=== PATIENT | female | born 1965 | race Two or more races ===

== ENCOUNTER 2022-07-23 10:53 | Emergency (ER) | payer OTHER ==
[~2022-07-23] VITALS: Ht 165.1 cm; Wt 59.0 kg
[2022-07-23 11:01] VITALS: BP 109/79
[2022-07-23] MEDS ORDERED: ACETAMINOPHEN 325MG TABLET PO ONE (12:00)
[2022-07-23] MEDS ORDERED: TOPUD MT (13:10)
== END 2022-07-23 13:42 | disposition home or self-care (01) ==
LOC: ER 10:53
DX: S62.394A Other fracture of fourth metacarpal bone, right hand, initial encounter for closed fracture (principal); S93.491A Sprain of other ligament of right ankle, initial encounter; X58.XXXA Exposure to other specified factors, initial encounter; Y93.89 Activity, other specified; Y92.89 Other specified places as the place of occurrence of the external cause; Y99.8 Other external cause status; Z90.710 Acquired absence of both cervix and uterus
CPT/HCPCS: 29125; 73130; 73590; 73610; 73630; 99284